=== PATIENT | female | born 1990 | race Asian ===

== ENCOUNTER 2018-05-05 17:55 | Emergency (ER) | payer MEDICAID, OTHER ==
[~2018-05-05] VITALS: Ht 152.4 cm; Wt 66.4 kg
[2018-05-05 17:57] VITALS: BP 143/100
[2018-05-05] MEDS ORDERED: OXYcodone/APAP 5/325MG TABLET ONE (18:56)
[2018-05-05] MEDS ORDERED: OXYcodone/APAP 5/325MG TABLET PO ONE (19:00)
== END 2018-05-05 19:10 | disposition home or self-care (01) ==
LOC: ED 19:00
DX: K02.9 Dental caries, unspecified (principal); F17.200 Nicotine dependence, unspecified, uncomplicated
CPT/HCPCS: 99283